=== PATIENT | male | born 1990 | race Two or more races ===

== ENCOUNTER 2017-06-04 20:35 | Emergency (ER) | payer SELFPAY ==
[~2017-06-04] VITALS: Ht 177.8 cm; Wt 103.7 kg
[2017-06-04] MEDS ORDERED: LIDO:MAALOX 1:1 20 ML SINGLE DOSE ONE (20:52)
[2017-06-04] MEDS ORDERED: LIDO:MAALOX 1:1 20 ML SINGLE DOSE PO ONE (21:00)
[2017-06-04 21:45] VITALS: BP 159/70
[2017-06-04] MEDS ORDERED: SUCR1TAB35 PO (21:52)
--- NOTE | 2017-06-04 21:52 | PHYS DOC ---
Past History Past Medical History: No Pertinent History Past Surgical History: No Surgical History Alcohol Use: Heavy Drug Use: None Adult General Chief Complaint Chief Complaint: GI PROBLEM HPI HPI Patient is a 27 year old M who presents with constant mild to moderate dull mid epigastric pain that started after having a few alcoholic beverages and eating [place] chicken wings. He has had similar episodes in the past which resolved without intervention. He denies fever sweats chills. He denies shortness of breath or chest pain. He feels that his symptoms are exacerbated by eating. He has no known alleviating factors. He does not smoke or have other cardiac risk factors. He does not take any medications on a regular basis. Review of Systems Review of Systems Constitutional: Denies fever or chills [] Eyes: Denies change in visual acuity, redness, or eye pain [] HENT: Denies nasal congestion or sore throat [] Respiratory: Denies shortness of breath [] occasional cough Cardiovascular: No additional information not addressed in HPI [] GI: Negative except history of present illness : Denies dysuria or hematuria [] Musculoskeletal: Denies back pain or joint pain [] Integument: Denies rash or skin lesions [] Neurologic: Denies headache, focal weakness or sensory changes [] Endocrine: Denies polyuria or polydipsia [] Family History Family History Noncontributory Current Medications Current Medications Medications reviewed Current Medications Medications (Trade) Dose Ordered Sig/[facility] Start Time Stop Time Status Last Admin Dose Admin Multi-Ingredient Mouthwash/Gargle (Gi Cocktail) 20 ml 1X ONCE 06/04/17 21:00 06/04/17 21:10 DC 06/04/17 20:53 20 ML Allergies Allergies Allergies Coded Allergies Type Severity Reaction Last Updated Verified No Known Drug Allergies 06/04/17 No Physical Exam Physical Exam Constitutional: Well developed, well nourished, no acute distress, non-toxic appearance. [] HENT: Normocephalic, atraumatic, Eyes: EOMI, conjunctiva normal, no discharge. [] Neck: Normal range of motion, no tenderness, supple, no stridor. [] Cardiovascular:Heart rate regular rhythm, no murmur [] Lungs & Thorax: Bilateral breath sounds clear to auscultation [] Abdomen: Bowel sounds normal, soft, no tenderness, no masses, no pulsatile masses. [] Skin: Warm, dry, no erythema, no rash. [] Extremities: No tenderness, no cyanosis, no clubbing, ROM intact, no edema. [] Neurologic: Alert and oriented X 3, normal motor function, normal sensory function, no focal deficits noted. [] Psychologic: Affect normal, judgement normal, mood normal. [] Current Patient Data Vital Signs Vital Signs Date Time Temp Pulse Resp B/P (MAP) Pulse Ox O2 Delivery O2 Flow Rate FiO2 06/04/17 20:35 98.2 65 18 100 Room Air EKG EKG [] Radiology/Procedures Radiology/Procedures [] Course & Med Decision Making Course & Med Decision Making Pertinent Labs and Imaging studies reviewed. (See chart for details) Russell's symptoms resolved after a GI cocktail. Dragon Disclaimer Dragon Disclaimer This chart was dictated in whole or in part using Voice Recognition software in a busy, high-work load, and often noisy Emergency Department environment. It may contain unintended and wholly unrecognized errors or omissions. Departure Departure: Impression: Primary Impression: Gastritis Disposition: 01 HOME, SELF-CARE Condition: STABLE Referrals: PCPKEVIN (PCP) Patient Instructions: Gastritis, Adult Additional Instructions: Russell was seen in the emergency department for abdominal pain. No emergency medical condition was found on history or physical exam. He was given a GI cocktail with moderate improvement in his symptoms. His symptoms are most consistent with gastritis or irritation of the stomach. He was given a prescription for Carafate to take prior to meals. He was also advised follow-up with his primary care doctor within the next week for further management. Scripts Sucralfate (CARAFATE) 1 Gm Tablet 1 TAB PO QID for 14 Days, #56 TAB 1 Refill Take prior to meals Prov: KAREN ADAMS MD 06/04/17 Problem Qualifiers Primary Impression: Gastritis Gastritis type: unspecified gastritis Chronicity: unspecified Gastritis bleeding: without bleeding Qualified Codes: K29.70 - Gastritis, unspecified, without bleeding KAREN ADAMS MD Jun 04, 2017 21:52
== END 2017-06-04 21:53 | disposition home or self-care (01) ==
LOC: ER 20:35
DX: K29.70 Gastritis, unspecified, without bleeding (principal); F10.10 Alcohol abuse, uncomplicated
CPT/HCPCS: 99283